=== PATIENT | male | born 1955 | race Caucasian/White ===

== ENCOUNTER 2018-11-19 10:59 | Emergency (ER) | payer MEDICAID ==
[~2018-11-19] VITALS: Ht 182.9 cm; Wt 54.4 kg
[~2018-11-19 10:59] MED LIST: CLONAZEPAM; CLONAZEPAM PO; EFFEXOR XR75 MG PO; ZPAK PO
[2018-11-19] MEDS ORDERED: CARAFATE 1 GM TA1 G1 PO (11:09)
[2018-11-19] MEDS ORDERED: PROTONIX 20 MG20 MG PO (11:09)
[2018-11-19 11:34] LABS: ABSOLUTE EOSINOPHILS 0.1 thou/uL (0.0-0.7); ABSOLUTE LYMPHOCYTES 1.5 thou/uL (0.8-5.3); ABSOLUTE MONOCYTES 0.4 thou/uL (0.0-1.2); ABSOLUTE NEUTROPHILS 3.6 thou/uL (1.6-8.1); BASOPHILS 0.4 %; EOSINOPHILS 1.3 %; HEMATOCRIT 48.3 % (42.0-52.0); HEMOGLOBIN 16.3 gm/dL (14.0-18.0); LYMPHOCYTES 26.2 %; MCH 33.4 pg (26.0-34.0); MCHC 33.7 g/dL (28.0-37.0); MCV 99.3 fL (80.0-100.0); MONOCYTES 7.5 %; MPV 7.5 fl. (7.2-11.1); NUCLEATED RBCS 0 /100WBC; PLATELET COUNT* 323 thou/uL (150-400); POLYS 64.6 %; RBC 4.87 mil/uL (4.50-6.00); RDW-CV 13.3 % (10.5-14.5); WBC 5.6 thou/uL (4.0-11.0)
[2018-11-19 11:38] LABS: ANION GAP 4 mmol/L (7-16); BUN 8 mg/dL (7-18); CALCIUM 9.2 mg/dL (8.5-10.1); CHLORIDE 98 mmol/L (98-107); CO2 33 mmol/L (21-32); CREATININE 0.9 mg/dL (0.6-1.3); GLUCOSE 109 mg/dL (70-99); POTASSIUM 4.1 mmol/L (3.5-5.1); SODIUM 135 mmol/L (136-145)
[2018-11-19 11:47] LABS: ALKALINE PHOSPHATASE 95 U/L (46-116); LIPASE 99 U/L (73-393); SGOT 17 U/L (15-37); SGPT 31 U/L (30-65); TOTAL BILIRUBIN 0.4 mg/dL (<0.1-1.0); TOTAL PROTEIN 7.5 g/dL (6.4-8.2); TROPONIN-I LEVEL <0.06 ng/mL (<0.06)
[2018-11-19 13:47] VITALS: BP 133/88
--- NOTE | 2018-11-20 14:57 | EKG ---
[place] [address] ELECTROCARDIOGRAM REPORT Name: ERA FLORES [id number] Admission: 11/19/18 Attend Phys: Discharge: 11/19/18 Date of : 55 Report #: [id number] THIS REPORT FOR: //name// 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
== END 2018-11-19 13:47 | disposition home or self-care (01) ==
LOC: M.ERS 10:59
PROVIDERS: Nurse Practitioner Family
DX: R10.11 Right upper quadrant pain (principal); R10.31 Right lower quadrant pain; K21.9 Gastro-esophageal reflux disease without esophagitis; F32.9 Major depressive disorder, single episode, unspecified; F41.9 Anxiety disorder, unspecified; Z88.2 Allergy status to sulfonamides

== ENCOUNTER 2019-03-17 13:24 | Emergency (ER) | payer MEDICAID ==
[~2019-03-17] VITALS: Ht 182.9 cm; Wt 59.0 kg
[~2019-03-17 13:24] MED LIST changes: +CARAFATE 1 GM TA1 G1 PO; +PROTONIX 20 MG20 MG PO
[2019-03-17] MEDS ORDERED: AUGMENTIN 875-1 EACH PO (13:30)
[2019-03-17] MEDS ORDERED: RAYOS5 MG PO (13:30)
[2019-03-17 14:10] LABS: BE -1.2 mmol/L (-2 to +3); PCO2 37.4 mmHg (35.0-45.0); PO2 69.4 mmHg (75.0-100.0); pH 7.407 (7.340-7.450)
[2019-03-17 14:12] LABS: HEMATOCRIT 43.3 % (42.0-52.0); HEMOGLOBIN 14.9 gm/dL (14.0-18.0); MCH 33.7 pg (26.0-34.0); MCHC 34.3 g/dL (28.0-37.0); MCV 98.1 fL (80.0-100.0); MPV 6.5 fl. (7.2-11.1); NUCLEATED RBCS 0 /100WBC; PLATELET COUNT* 317 thou/uL (150-400); RBC 4.42 mil/uL (4.50-6.00); RDW-CV 13.3 % (10.5-14.5); WBC 8.3 thou/uL (4.0-11.0)
[2019-03-17 14:24] LABS: CALCIUM 8.8 mg/dL (8.5-10.1); CREATININE 0.8 mg/dL (0.6-1.3); POTASSIUM 3.9 mmol/L (3.5-5.1)
[2019-03-17 14:28] LABS: ALBUMIN 3.2 g/dL (3.4-5.0); TOTAL BILIRUBIN 0.2 mg/dL (<0.1-1.0); TOTAL PROTEIN 6.6 g/dL (6.4-8.2)
[2019-03-17 15:07] LABS: ABSOLUTE LYMPHOCYTES 0.9 thou/uL (0.8-5.3); ABSOLUTE NEUTROPHILS 7.4 thou/uL (1.6-8.1); PLATELET ESTIMATE ADEQUATE
[2019-03-17 15:10] LABS: INFLUENZA A ANTIGEN Negative (Negative); INFLUENZA B ANTIGEN Negative (Negative)
[2019-03-17] MEDS ORDERED: NEBULIZER MISCELL (17:11)
[2019-03-17] MEDS ORDERED: PREDNISONE 20 M20 M1 PO (17:11)
[2019-03-17] MEDS ORDERED: IPRAT-ALBUT 0.5-3 ML INH (17:11)
[2019-03-17] MEDS ORDERED: ZITHROMAX TRI-500 MG PO (17:11)
[2019-03-17 17:24] VITALS: BP 150/90
--- NOTE | 2019-03-18 13:20 | EKG ---
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 03/18/19 1319 D: 10/1328 28 Joss Tyler MD, FACC /EPI
== END 2019-03-17 17:24 | disposition home or self-care (01) ==
LOC: M.ERS 13:24
PROVIDERS: Personal Emergency Response Attendant; Physician Assistant
DX: J44.1 Chronic obstructive pulmonary disease with (acute) exacerbation (principal); K21.9 Gastro-esophageal reflux disease without esophagitis; F41.9 Anxiety disorder, unspecified; F32.9 Major depressive disorder, single episode, unspecified; F17.210 Nicotine dependence, cigarettes, uncomplicated; Z88.2 Allergy status to sulfonamides

== ENCOUNTER 2020-07-30 13:08 | Emergency (ER) | payer MEDICAID ==
[~2020-07-30] VITALS: Ht 182.9 cm; Wt 54.4 kg
[~2020-07-30 13:08] MED LIST changes: +AUGMENTIN 875-1 EACH PO; +IPRAT-ALBUT 0.5-3 ML INH; +NEBULIZER MISCELL; +PREDNISONE 20 M20 M1 PO; +RAYOS5 MG PO; +ZITHROMAX TRI-500 MG PO
[2020-07-30 13:47] LABS: INFLUENZA A ANTIGEN Negative (Negative); INFLUENZA B ANTIGEN Negative (Negative)
[2020-07-30 13:48] LABS: ABSOLUTE LYMPHOCYTES 1.5 thou/uL (0.8-5.3); ABSOLUTE MONOCYTES 0.5 thou/uL (0.0-1.2); ABSOLUTE NEUTROPHILS 11.8 thou/uL (1.6-8.1); BASOPHILS 0.3 %; EOSINOPHILS 0.3 %; HEMATOCRIT 42.8 % (42.0-52.0); HEMOGLOBIN 14.5 gm/dL (14.0-18.0); LYMPHOCYTES 10.9 %; MCH 33.5 pg (26.0-34.0); MCHC 33.9 g/dL (28.0-37.0); MCV 98.8 fL (80.0-100.0); MONOCYTES 3.5 %; MPV 7.1 fl. (7.2-11.1); NUCLEATED RBCS 0 /100WBC; PLATELET COUNT* 307 thou/uL (150-400); RBC 4.33 mil/uL (4.50-6.00); RDW-CV 13.4 % (10.5-14.5); WBC 13.9 thou/uL (4.0-11.0)
[2020-07-30 13:53] LABS: CALCIUM 8.6 mg/dL (8.5-10.1); CREATININE 0.8 mg/dL (0.6-1.3); POTASSIUM 3.7 mmol/L (3.5-5.1)
[2020-07-30 13:57] LABS: ALBUMIN 3.5 g/dL (3.4-5.0); TOTAL BILIRUBIN 0.5 mg/dL (<0.1-1.0); TOTAL PROTEIN 6.9 g/dL (6.4-8.2)
--- NOTE | 2020-07-30 14:56 | EKG ---
[place] [address] ELECTROCARDIOGRAM REPORT Name: ERA FLORES Room: [facility]#: [id number] Admission: 07/30/20 Attend Phys: Discharge: Date of : 55 Date of Service: 07/30/20 1330 Report #: [id number] THIS REPORT FOR: //name// [facility] ED Test Date: 2020-07-30 Test Time: 13:30:57 Pat Name: ERA FLORES Department: Room: Gender: Bar Tender: ISIDORO : 1955 Requested By: Balaji Villarreal Order Number: [id number] MD: Stef Lopez Measurements Intervals [place] Rate: 113 P: 75 CT: 157 QRS: 82 QRSD: 97 T: -34 QT: 349 QTc: 479 Interpretive Statements Sinus tachycardia Borderline right axis deviation Borderline T abnormalities, inferior leads Borderline prolonged QT interval Baseline wander in lead(s) II,III,aVF Compared to ECG 03/17/2019 13:29:31 Sinus rhythm no longer present Electronically Signed On 07-30-2020 14:56:13 ARCHITECTURAL SUPERINTENDENT by Stef Lopez [email or web address] <ELECTRONICALLY SIGNED> By: Stef Lopez MD, FAC 07/30/20 1456 1330 1330 Stef Lopez MD, FAC /EPI
[2020-07-30] MEDS ORDERED: PREDNISONE 20 M20 M1 PO (15:42)
[2020-07-30] MEDS ORDERED: LEVOFLOXACIN750 MG PO (15:42)
[2020-07-30 15:52] VITALS: BP 136/74
== END 2020-07-30 15:53 | disposition home or self-care (01) ==
LOC: M.ERS 13:08
PROVIDERS: Physician Assistant
DX: J44.1 Chronic obstructive pulmonary disease with (acute) exacerbation (principal); B34.9 Viral infection, unspecified; Z20.822 Contact with and (suspected) exposure to COVID-19; K21.9 Gastro-esophageal reflux disease without esophagitis; K58.9 Irritable bowel syndrome, unspecified; F17.210 Nicotine dependence, cigarettes, uncomplicated; Z88.2 Allergy status to sulfonamides

== ENCOUNTER 2020-08-09 18:28 | Emergency (ER) | payer MEDICAID ==
[~2020-08-09] VITALS: Ht 182.9 cm; Wt 62.6 kg
[~2020-08-09 18:28] MED LIST changes: +LEVOFLOXACIN750 MG PO
[2020-08-09] MEDS ORDERED: NORCO5 PO (20:23)
[2020-08-09] MEDS ORDERED: IBUPROFEN 600600 M1 PO (20:23)
[2020-08-09 20:45] VITALS: BP 148/82
== END 2020-08-09 20:45 | disposition home or self-care (01) ==
LOC: M.ERS 18:28
DX: S22.080A Wedge compression fracture of T11-T12 vertebra, initial encounter for closed fracture (principal); K58.9 Irritable bowel syndrome, unspecified; K21.9 Gastro-esophageal reflux disease without esophagitis; J44.9 Chronic obstructive pulmonary disease, unspecified; F17.210 Nicotine dependence, cigarettes, uncomplicated; Z88.2 Allergy status to sulfonamides; X50.9XXA Other and unspecified overexertion or strenuous movements or postures, initial encounter; Y93.89 Activity, other specified; Y92.89 Other specified places as the place of occurrence of the external cause; Y99.8 Other external cause status

== ENCOUNTER 2020-12-10 11:40 | Emergency (ER) | payer MEDICARE, MEDICAID ==
[~2020-12-10] VITALS: Ht 182.9 cm; Wt 54.4 kg
[~2020-12-10 11:40] MED LIST changes: +IBUPROFEN 600600 M1 PO; +NORCO5 PO
[2020-12-10 13:30] VITALS: BP 146/89
--- NOTE | 2020-12-10 16:38 | EKG ---
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 : 1955 Requested By: Cj Poon Order Number: [id number] MD: Juancho Crandall Measurements Intervals [place] Rate: 117 P: 88 MS: 148 QRS: 89 QRSD: 99 T: 32 QT: 315 QTc: 440 Interpretive Statements Sinus tachycardia Multiple ventricular premature complexes Biatrial enlargement Borderline right axis deviation Possible anteroseptal infarct, old Nonspecific T abnormalities, lateral leads Baseline wander in lead(s) II,III,aVR,aVF,V3,V6 Compared to ECG 07/30/2020 13:30:57 Ventricular premature complex(es) now present Atrial abnormality now present Myocardial infarct finding now present T-wave abnormality still present Electronically Signed On 12-10-2020 16:38:35 CDT by Juancho Crandall [email or web address] <ELECTRONICALLY SIGNED> By: Juancho Crandall MD, [facility] 12/10/20 1638 1146 1146 Juancho Crandall MD, [facility] /EPI
== END 2020-12-10 13:35 | disposition left against medical advice (07) ==
LOC: M.ERS 11:40
DX: R10.9 Unspecified abdominal pain (principal); R07.89 Other chest pain

== ENCOUNTER 2020-12-13 12:24 | Emergency (ER) | payer MEDICARE, MEDICAID ==
[~2020-12-13] VITALS: Ht 182.9 cm; Wt 53.1 kg
[2020-12-13] MEDS ORDERED: TRELEGY ELLIPT1 EACH INH (12:37)
[2020-12-13] MEDS ORDERED: KLONOPIN0.5 MG PO (12:37)
[2020-12-13 12:56] LABS: ABSOLUTE EOSINOPHILS 0.1 thou/uL (0.0-0.7); ABSOLUTE MONOCYTES 0.5 thou/uL (0.0-1.2); ABSOLUTE NEUTROPHILS 4.6 thou/uL (1.6-8.1); BASOPHILS 0.5 %; EOSINOPHILS 1.2 %; HEMATOCRIT 45.5 % (42.0-52.0); LYMPHOCYTES 27.6 %; MCH 34.7 pg (26.0-34.0); MCHC 35.2 g/dL (28.0-37.0); MCV 98.6 fL (80.0-100.0); MPV 7.3 fl. (7.2-11.1); NUCLEATED RBCS 0 /100WBC; PLATELET COUNT* 309 thou/uL (150-400); POLYS 63.7 %; RBC 4.61 mil/uL (4.50-6.00); RDW-CV 13.6 % (10.5-14.5); WBC 7.3 thou/uL (4.0-11.0)
[2020-12-13 13:04] LABS: CALCIUM 9.1 mg/dL (8.5-10.1); CREATININE 0.8 mg/dL (0.6-1.3); POTASSIUM 4.1 mmol/L (3.5-5.1)
[2020-12-13 13:08] LABS: ALBUMIN 3.9 g/dL (3.4-5.0); TOTAL BILIRUBIN 0.4 mg/dL (<0.1-1.0); TOTAL PROTEIN 7.3 g/dL (6.4-8.2)
[2020-12-13 14:25] VITALS: BP 132/70
== END 2020-12-13 14:26 | disposition home or self-care (01) ==
LOC: M.ERS 12:24
PROVIDERS: Family Medicine
DX: K41.90 Unilateral femoral hernia, without obstruction or gangrene, not specified as recurrent (principal); K58.9 Irritable bowel syndrome, unspecified; K21.9 Gastro-esophageal reflux disease without esophagitis; J44.9 Chronic obstructive pulmonary disease, unspecified; F17.210 Nicotine dependence, cigarettes, uncomplicated; Z88.2 Allergy status to sulfonamides